=== PATIENT | female | born 1955 | race Two or more races ===

== ENCOUNTER 2024-08-24 06:00 | Day surgery (SDC) | payer OTHER ==
[2024-08-24] MEDS ORDERED: DIPHENHYDRAMINE HCL 50 MG/ML VIAL 1ML IV ONE (11:15)
[2024-08-24] MEDS ORDERED: METHYLENE BLUE 50MG/10ML AMP IV ONE (11:15)
[2024-08-24] MEDS ORDERED: fentaNYL CITRATE 50 MCG/ML AMPUL IV PUSH ONE (11:15)
[2024-08-24] MEDS ORDERED: MIDAZOLAM HCL 2 MG/2 ML VIAL IV ONE (11:15)
== END 2024-08-24 13:00 | disposition home or self-care (01) ==
LOC: AMB-ENDOS 06:00
PROVIDERS: ATTEND Internal Medicine
DX: D12.8 Benign neoplasm of rectum (principal); K57.30 Diverticulosis of large intestine without perforation or abscess without bleeding